=== PATIENT | female | born 1985 | race Caucasian/White ===

== ENCOUNTER 2019-04-10 23:21 | Emergency (ER) | payer MEDICAID ==
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
[2019-04-11 00:35] LABS: % BASOPHILS 0.5 % (0.0-2.0); % EOSINOPHILS 1.4 % (0.0-5.0); % LYMPHOCYTES 31.6 % (20.0-50.0); % MONOCYTES 5.5 % (2.0-10.0); EOSINOPHILE ABSOLUTE 0.1 Th/cmm (0.1-0.4); HEMATOCRIT 39.6 % (41.0-60); HEMOGLOBIN 13.3 gm/dL (12-16); LYMPHOCYTE ABSOLUTE 2.8 Th/cmm (1.5-3.0); MEAN CELL VOLUME 89.4 fl (81-100); MEAN CORPUSCULAR HGB CONC 33.6 pg (28.0-36.0); MONOCYTE ABSOLUTE 0.5 Th/cmm (0.3-1.0); NEUTROPHILE ABSOLUTE 5.4 Th/cmm (1.8-8.0); PLATELET COUNT 242 Th/cmm (150-400); RED BLOOD COUNT 4.43 Mil/cmm (3.80-5.10); WHITE BLOOD COUNT 8.8 Th/cmm (4.8-10.8)
[2019-04-11 00:55] LABS: ALB/GLOB RATIO 1.6 (1.0-1.8); ALBUMIN 4.6 gm/dL (3.7-5.3); ALKALINE PHOSPHATASE 51 U/L (34-104); BILIRUBIN,TOTAL 0.3 mg/dL (0.3-1.0); BUN - UREA NITROGEN 12 mg/dL (7-25); CALCIUM SERUM 9.9 mg/dL (8.6-10.3); CARBON DIOXIDE 24.4 mEq/L (21.0-31.0); CHLORIDE 104 mEq/L (98-107); CREATININE - SERUM 0.6 mg/dL (0.6-1.2); GFR AFRICAN-AMERICAN > 60.0 ml/min (>90); GFR NON AFRICAN-AMERICAN > 60.0 ml/min; GLUCOSE 130 mg/dL (70-105); POTASSIUM SERUM 3.4 mEq/L (3.5-5.1); SGOT 19 U/L (13-39); SGPT/ALT 27 U/L (7-52); SODIUM SERUM 135 mEq/L (136-145); TOTAL PROTEIN,SERUM 7.4 gm/dL (6.0-8.3)
[2019-04-11 00:57] LABS: INR 0.95 (0.5-1.4)
[2019-04-11] MEDS ORDERED: Potassium Chloride 20 mEq ER Tab PO ONE ×2 (01:44→01:45)
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
--- NOTE | 2019-04-11 09:57 | Diagnostic Imaging Report ---
CHEST X-RAY: AP view INDICATION: pain COMPARISON: None FINDINGS: There is mild elevation the right hemidiaphragm. There is no focal consolidation or pleural effusions The heart is normal in size. The osseous structures demonstrate no acute abnormalities. IMPRESSION: No focal airspace consolidation identified.
== END 2019-04-11 02:00 | disposition home or self-care (01) ==
LOC: ER 23:21
DX: G89.29 Other chronic pain (principal); M25.512 Pain in left shoulder; E87.6 Hypokalemia; R73.9 Hyperglycemia, unspecified
CPT/HCPCS: 36415-UA; 71045-TC; 73030-TC-LT; 80053-TC; 84484-TC; 85025-TC; 85610-TC; 93005